=== PATIENT | female | born 1990 | race Two or more races ===

== ENCOUNTER 2024-06-02 12:11 | Emergency (ER) | payer OTHER ==
[~2024-06-02] VITALS: Ht 167.6 cm; Wt 104.6 kg
--- NOTE | 2024-06-02 12:34 | ED.PDOC ---
History of Present Illness HPI Comments 33-year-old female came to the ER complaining of right lower quadrant stabbing pain for the past four days. She states the pain causes to have vomiting. She is unable to ambulate without having excruciating pain. Pain 10/10. Denies any history of hypertension diabetes. She denies . She denies any other symptoms. 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: No Pertinent CORE PASTER History Social History Smoker: Non-Smoker Alcohol: Denies ETOH Use Drugs: Denies Drug Use Constitutional: denies: chills, diaphoresis, fatigue, fever, malaise, sweats, weakness, others EENTM: denies: blurred vision, double vision, ear bleeding, ear discharge, ear drainage, ear pain, ear ringing, eye pain, eye redness, hearing loss, mouth pain, mouth swelling, nasal discharge, nose bleeding, nose congestion, nose pain, photophobia, tearing, throat pain, throat swelling, voice changes, others Respiratory: denies: cough, hemoptysis, orthopnea, SOB at rest, shortness of breath, SOB with excertion, stridor, wheezing, others Cardiovascular: denies: chest pain, dizzy spells, diaphoresis, Dyspnea on exertion, edema, irregular heart beat, left arm pain, lightheadedness, pa lpitations, PND, syncope, others Gastrointestinal: denies: abdomen distended, abdominal pain, blood streaked bowels, constipated, diarrhea, dysphagia, difficulty swallowing, hematemesis, melena, nausea, poor appetite, poor fluid intake, rectal bleeding, rectal pain, vomiting, others Genitourinary: reports: others (Right lower quadrant mostly in the ovarian region pain); denies: abnormal vagina bleeding, burning, dyspareunia, dysuria, flank pain, frequency, hematuria, incontinence, pain, , vagina discharge, urgency Neurological: denies: dizziness, fainting, headache, left sided numbness, left sided weakness, numbness, paresthesia, pre-existing deficit, right sided n umbness, right sided weakness, seizure, speech problems, tingling, tremors, weakness, others Musculoskeletal: denies: back pain, gout, joint pain, joint swelling, muscle pain, muscle stiffness, neck pain, others Integumetry: denies: bruises, change in color, change in hair/nails, dryness, laceration, lesions, lumps, rash, wounds, others Allergic/Immunocompromised: denies: Difficulty Healing, Frequent Infections, Hives, Itching, others Hematologic/Lymphatic: denies: anemia, blood clots, easy bleeding, easy bruising, swollen glands, others Endocrine: denies: excessive hunger, excessive sweating, excessive thirst, excessive urination, flushing, intolerance to cold, intolerance to heat, unexplained weight gain, unexplained weight loss, others Psychiatric: denies: anxiety, bipolar disorder, depression, hopeless, panic disorder, schizophrenia, sleepless, suicidal, others Physical Exam General Appearance: Moderate Distress HEENT: Normal ENT Inspection, Pharynx Normal, TMs Normal Neck: Full Range of Motion, Non-Tender, Normal, Normal Inspection Respiratory: Chest Non-Tender, Lungs Clear, No Accessory Muscle Use, No Respiratory Distress, Normal Breath Sounds Cardiovascular: No Edema, No JVD, No Murmur, No Gallop, Normal Peripheral Pulses, Regular Rate/Rhythm Breast Exam: Deferred Gastrointestinal: No Organomegaly, Non Tender, No Pulsatile Mass, Normal Bowel Sounds, Soft Genitalia: Deferred Pelvic: Deferred Rectal: Deferred Extremities: No calf tenderness, Normal capillary refill, Normal inspection, Normal range of motion, Non-tender, No pedal edema Musculoskeletal : Apperance: Normal Neurologic: Alert, legal adviser II-XII nml as Tested, No Motor Deficits, Normal Affect, Normal Mood, No Sensory Deficits Cerebellar Function: Normal Reflexes: Normal Skin: Dry, Normal Color, Warm Peripheral Pulses: 3+ Radial (R), 3+ Radial (L) Lymphatic: No Adenopathy Was a procedure done? Was a procedure done?: No Differential Dx Considerations may include: Ovarian cyst Electrolyte imbalance X-Ray, Labs, Meds, VS Vital Signs Date Time Temp Pulse Resp B/P (MAP) Pulse Ox O2 Delivery O2 Flow Rate FiO2 06/02/24 14:19 86 18 96 Room Air* 0 21 06/02/24 13:50 97.8 86 18 140/98 (112) 96 97.8 06/02/24 13:50 86 18 96 Room Air 06/02/24 12:29 98.3 90 16 164/96 (118) 99 98.3 Lab Test 06/02/24 12:28 Range/Units Urine Color Yellow Yellow Urine Clarity Clear Clear Urine pH 5.5 5.0-9.0 Urine Specific Foster 1.043 H 1.001-1.035 Urine Protein Negative Negative Urine Ketones Negative Negative Urine Blood Negative Negative /uL Urine Nitrite Negative Negative Urine Bilirubin Negative Negative Urine Urobilinogen Normal Negative mg/dL Urine Leukocyte Esterase 1+ Negative /uL Urine RBC 1 0 - 4 /hpf Urine Microscopic WBC 3 0-5 /HPF Urine Squamous Epithelial Cells Few <5 /hpf Urine Bacteria Few H None Seen /hpf Urine Glucose 4+ H Normal mg/dL Current Medications Medications (Trade) Dose Ordered Sig/Fatemeh Route Start Time Stop Time Status Last Admin Sodium Chloride 1,000 ml @ 1,000 mls/hr Q1H ONCE IVB 06/02/24 12:30 06/02/24 13:29 DC 06/02/24 13:58 Ondansetron HCl (Zofran) 4 mg ONCE ONCE IV 06/02/24 12:30 06/02/24 12:31 DC 06/02/24 14:11 Ketorolac Tromethamine (Toradol Injection) 30 mg ONCE ONCE IV 06/02/24 14:00 06/02/24 14:01 DC 06/02/24 14:11 Ceftriaxone Sodium 50 ml @ 100 mls/hr ONCE ONCE IV 06/02/24 14:00 06/02/24 14:29 DC 06/02/24 14:10 Patient alert. Complaining of right lower quadrant pain. Possible ovarian cyst. Vitals stable. Answering questions. Establish intravenous access. Was given fluids. Was given morphine. Was given Zofran. Reviewed her history. Urinalysis shows UTI. Ultrasound does reveal ovarian cyst. Good flow. Explained to the patient. Continue monitoring. Was told to follow up with her primary care physician. Was told to come back if there is any problem. Time of 1ST Reevaluation: 12:32 Reevaluation 1ST: Unchanged Time of 2ND Reevaluation: 14:36 Reevaluation 2ND: Improved Patient Education/Counseling: Diagnosis, Treatment, Prognosis, Need For Follow Up Family Education/Counseling: No Family Present Departure 1 Departure Time of Disposition: 12:33 Impression: Primary Impression: Ovarian cyst Qualified Codes: N83.201 - Unspecified ovarian cyst, right side Additional Impression: Urinary tract infection Qualified Codes: N30.00 - Acute cystitis without hematuria Disposition: HOME / SELF CARE / HOMELESS Condition: Good e-Prescriptions Nitrofurantoin Monohydrate Mac (Macrobid) 100 Mg Cap 100 MG PO BID for 5 Days, #10 CAP Prov: BHARATHI BREAUX MD 06/02/24 Discharged With: Self Critical Care Note Critical Care Time?: No Stability Stability form required: No Heart Score Heart Score: Heart Score Response (Comments) Value History N/A 0 EKG N/A 0 Age N/A 0 Risk Factors N/A 0 Troponin N/A 0 Total 0 BHARATHI BREAUX MD Jun 02, 2024 12:34
[2024-06-02 13:05] LABS: Urine Bacteria FEW /hpf (None Seen); Urine Blood Negative /uL (Negative); Urine Clarity Clear (Clear); Urine Color Yellow (Yellow); Urine Protein, UAD Negative (Negative); Urine Specific Gravity 1.043 (1.001-1.035); Urine Squamous Epithelial Cell FEW /hpf (<5); Urine Urobilinogen Normal (Negative); Urine WBC 3 /HPF (0-5); Urine pH 5.5 (5.0-9.0)
[2024-06-02] MEDS: MORPHINE SULFATE 4 MG/ML SYR/VIAL IV ONE (13:52)
[2024-06-02] MEDS: SODIUM CHLORIDE 0.9% 1,000 ML IVB ONE (13:58)
--- NOTE | 2024-06-02 13:59 | DVH ---
Procedure: US PELVIC Study Date and Requested Time: 06/02/2024 01:07 PM Study Description: US PELVIC History: ovary Comparison: None Technique: Multiple transabdominal and transvaginal high resolution fernández-scale images obtained of the uterus and adnexa with color Doppler for evaluation of adnexal blood flow and vascularity as indicat ed. Findings: Uterus measures 8.2 x 4.3 x 4.1 cm, with heterogeneous echotexture. Endometrium within normal limits, measuring 0.7 cm in thickness with smooth contour. Trace amount of fluid within endocervical canal. Right ovary measures 2.3 x 2.3 x 2.6 cm with a 1.4 cm dominant follicle. Normal right ovarian color d oppler flow. The left ovary is not visualized. No evidence of free fluid in the cul-de-sac. Impression: The left ovary is not visualized. Trace amount of fluid within the endocervical canal. 1.4 cm right ovarian dominant cyst. Otherwise, the right ovary is unremarkable. Heterogeneous appearance of the uterus.
[2024-06-02] MEDS: cefTRIAXone 1GM/50ML D5W 50 ML IV ONE (14:10)
[2024-06-02] MEDS: KETOROLAC TROMETH 30 MG/ML 1ML VIAL IV ONE (14:11)
[2024-06-02] MEDS: ONDANSETRON HCL 4 MG/2 ML VIAL IV ONE (14:11)
[2024-06-02 14:19] VITALS: PULSE 86; RESP 18; O2SAT 96
[2024-06-02] MEDS ORDERED: NITR-87 PO (14:38)
[2024-06-02 15:30] VITALS: BP 150/88; PULSE 92; RESP 16; TEMP 97.6; O2SAT 98
== END 2024-06-02 15:41 | disposition home or self-care (01) ==
LOC: ER 12:11
DX: N83.209 Unspecified ovarian cyst, unspecified side (principal); N39.0 Urinary tract infection, site not specified; Z88.5 Allergy status to narcotic agent; Z98.890 Other specified postprocedural states
CPT/HCPCS: 76830; 76856; 81001; 96365; 96375; 99285; J0696; J1885; J2405

== ENCOUNTER 2024-07-10 11:11 | Emergency (ER) | payer SELFPAY ==
[~2024-07-10] VITALS: Ht 167.6 cm; Wt 101.4 kg
[~2024-07-10 11:11] MED LIST: NITR-87 PO
--- NOTE | 2024-07-10 13:17 | DVH ---
INDICATION: trauma. r/o fracture COMPARISON: None TECHNIQUE: 3 views of the lumbar spine were obtained. FINDINGS: The lumbar vertebral alignment is normal. The intervertebral disc spaces are well-maintained. No significant facet arthropathy is noted. No acute fracture, vertebral compression deformity or aggressive osseous lesions. The paravertebral soft tissues are grossly unremarkable. IMPRESSION: No acute fracture.
--- NOTE | 2024-07-10 13:22 | ED.PDOC ---
History of Present Illness HPI Comments 33 year old female presents to the ED for the c/c of Lumbar back pain. Pt states that she woke up at approx 4am to use the restroom. Pt notes that upon walking down her hallway she came across a puddle of water that she did not see, slipped, and hit her lower back. Pt states that she is currently in 10/10 pain with no alleviating factors at this time. Notes pt has had a prior Laminectomy back in 2013. Pt Denies fever, SOB, chest pain, abdominal pain, nausea, vomiting, diarrhea, headache, dizziness, vision changes, or numbness/tingling of extremities. No other symptoms or modifying factors reported at this time. Chief Complaint: Back Pain Time Seen by MD: 13:14 Primary Care Provider: SONY Kasper Notes: Nurses Notes, Medications, Allergies Home Meds Active Scripts Naproxen (Naproxen) 500 Mg Tab, 500 MG PO BIDPC for 10 Days, #20 TAB 0 Refills Prov:ESTEVAN WIGGINS DATA CONTROL ASSISTANT 07/10/24 Nitrofurantoin Monohydrate Mac (Macrobid) 100 Mg Cap, 100 MG PO BID for 5 Days, #10 CAP Prov:BHARATHI BREAUX MD 06/02/24 Information Source: Patient Mode of Arrival: Ambulatory Severity: Moderate Timing: Hours Duration: Since onset, Hours Prehospital treatment: None Past Medical History PAST MEDICAL HISTORY: Denies 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 History: 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 History: No Pertinent 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 WRITER History Social History Smoker: Non-Smoker Alcohol: Denies ETOH Use Drugs: Denies Drug Use Lives In: Home Constitutional: denies: chills, diaphoresis, fatigue, fever, malaise, sweats, weakness, others EENTM: denies: blurred vision, double vision, ear bleeding, ear discharge, ear drainage, ear pain, ear ringing, eye pain, eye redness, hearing loss, mouth pain, mouth swelling, nasal discharge, nose bleeding, nose congestion, nose pain, photophobia, tearing, throat pain, throat swelling, voice changes, others Respiratory: denies: cough, hemoptysis, orthopnea, SOB at rest, shortness of breath, SOB with excertion, stridor, wheezing, others Cardiovascular: denies: chest pain, dizzy spells, diaphoresis, Dyspnea on exertion, edema, irregular heart beat, left arm pain, lightheadedness, palpitations, PND, syncope, others Gastrointestinal: denies: abdomen distended, abdominal pain, blood streaked bowels, constipated, diarrhea, dysphagia, difficulty swallowing, hematemesis, melena, nausea, poor appetite, poor fluid intake, rectal bleeding, rectal pain, vomiting, others Genitourinary: denies: abnormal vagina bleeding, burning, dyspareunia, dysuria, flank pain, frequency, hematuria, incontinence, pain, , vagina discharge, urgency, others Neurological: denies: dizziness, fainting, headache, left sided numbness, left sided weakness, numbness, paresthesia, pre-existing deficit, right sided numbness, right sided weakness, seizure, speech problems, tingling, tremors, weakness, others Musculoskeletal: reports: back pain (lumbar); denies: gout, joint pain, joint swelling, muscle pain, muscle stiffness, neck pain, others Integumetry: denies: bruises, change in color, change in hair/nails, dryness, laceration, lesions, lumps, rash, wounds, others Allergic/Immunocompromised: denies: Difficulty Healing, Frequent Infections, Hives, Itching, others Hematologic/Lymphatic: denies: anemia, blood clots, easy bleeding, easy bruising, swollen glands, others Endocrine: denies: excessive hunger, excessive sweating, excessive thirst, excessive urination, flushing, intolerance to cold, intolerance to heat, unexplained weight gain, unexplained weight loss, others Psychiatric: denies: anxiety, bipolar disorder, depression, hopeless, panic disorder, schizophrenia, sleepless, suicidal, others All Other Systems: Reviewed and Negative Physical Exam General Appearance: Moderate Distress, Normal, Obese HEENT: Normal ENT Inspection, TMs Normal Neck: Full Range of Motion, Non-Tender, Normal Respiratory: Chest Non-Tender, Lungs Clear, No Respiratory Distress, Normal Breath Sounds Cardiovascular: No Edema, No JVD, Regular Rate/Rhythm Breast Exam: Deferred Gastrointestinal: Non Tender, No Pulsatile Mass, Soft Genitalia: Deferred Pelvic: Deferred Rectal: Deferred Extremities: No calf tenderness, Normal inspection, Normal range of motion, Non-tender, No pedal edema Musculoskeletal : Location: Bilateral Extremity Location: Back (no gross abnormality upon inspection, no midline tenderness, no step offs on palpation, subjective pain with foward flection, and lateral movements, distal sensation intact.), Knee (Bilateral patelar reflexes and 2x bilaterally.) Apperance: Normal Neurologic: Alert, No Motor Deficits, Normal Mood Cerebellar Function: Normal Reflexes: Normal Skin: Dry, Normal Color, Warm Lymphatic: No Adenopathy Was a procedure done? Was a procedure done?: No Differential Dx Considerations may include: Musculoskeletal, strain, fractures X-Ray, Labs, Meds, VS Vital Signs Date Time Temp Pulse Resp B/P (MAP) Pulse Ox O2 Delivery O2 Flow Rate FiO2 07/10/24 14:22 98.5 72 16 141/89 (106) 98 98.5 07/10/24 14:22 98.9 07/10/24 14:22 76 16 98 Room Air 07/10/24 13:50 98.1 07/10/24 12:01 98.2 83 18 151/88 (109) 98 98.2 Current Medications Medications (Trade) Dose Ordered Sig/Fatemeh Route Start Time Stop Time Status Last Admin Acetaminophen/ Hydrocodone Bitart ([place] 7.5/325MG Tab) 1 tab ONCE ONCE PO 07/10/24 13:45 07/10/24 13:46 DC 07/10/24 13:51 Ibuprofen (Motrin Tablet) 600 mg ONCE ONCE PO 07/10/24 13:45 07/10/24 13:46 DC 07/10/24 13:50 PATIENT: FERNANDA CURTIS ACCT: [id number] UNIT: [id number] : 1990 LOC: ER ROOM / BED: / AGE / SEX: 33 / F ADM STATUS: REG ER SERVICE 1206 ORDERING PHYSICIAN: ESTEVAN WIGGINS DATA CONTROL ASSISTANT PROCEDURE(s): LUMB2 - LUMBAR SPINE 3 VIEW REASON: Fall. r/o fracture ORDER NUMBER(s): [id number], ACCESSION NUMBER(s): [id number] INDICATION: trauma. r/o fracture COMPARISON: None TECHNIQUE: 3 views of the lumbar spine were obtained. FINDINGS: The lumbar vertebral alignment is normal. The intervertebral disc spaces are well-maintained. No significant facet arthr opathy is noted. No acute fracture, vertebral compression deformity or aggressive osseous lesions. The paravertebral soft tissues are grossly unremarkable. IMPRESSION: No acute fracture. Electronically Signed by: Lilia lacey 07/10/2024 13:14:57 PM X-Ray, Labs, Meds, VS Comment 33 year old female presents to the ED for the c/c of Lumbar back pain. I considered cauda equina, spinal cord compression, vertebral malignancy/mets, acute spinal fracture, vertebral osteomyelitis, epidural abscess, infected or obstructed kidney stone, however this is less likely as the patient does not present with lower back pain red flags. Presentation most consistent with nonemergent musculoskeletal etiology versus nonemergent disc herniation. ED workup: Defer further imaging and lab work for outpatient follow up at this time Disposition: Discharge. Strict return precautions discussed with the patient with full understanding. Supportive care advised (rest, ice, heat, NSAIDs, stretching exercises) Massage muscles with cold pack or ice for 20 minutes 4 times per day. Usually most useful if there is swelling during the first 48 hours Heating pad on the most painful area for 20 minutes to relieve muscle spasm Sleep and the most comfortable sleeping position (usually on the side with knees bent) Light stretching, no strenuous activity, avoid frequent bending, avoid carrying heavy objects Discussed possible benefits of yoga and acupuncture Return precautions discussed including Inability to walk/bear weight Paresthesia/weakness/leg pain Fecal/urinary incontinence Any worsening symptoms Additional MDM Review of External, Non-ED records: External records reviewed. Discussion with independent historian (EMS, family) history obtained from the marc ferris at bedside Chronic conditions affecting care: None Social determinants of health affecting care: None Consideration of admission (observation or admission): I considered escalation of care to admission for this patient, however given the reassuring workup, the patient is safe for outpatient management. Time of 1ST Reevaluation: 13:45 Reevaluation 1ST: Unchanged Patient Education/Counseling: Diagnosis, Treatment Family Education/Counseling: No Family Present Departure 1 Departure Time of Disposition: 13:34 Impression: Primary Impression: Fall Qualified Codes: W19.XXXA - Unspecified fall, initial encounter Additional Impression: Back pain Qualified Codes: M54.50 - Low back pain, unspecified Disposition: 01 HOME / SELF CARE / HOMELESS Condition: Stable e-Prescriptions Naproxen (Naproxen) 500 Mg Tab 500 MG PO BIDPC for 10 Days, #20 TAB 0 Refills Prov: ESTEVAN WIGGINS DATA CONTROL ASSISTANT 07/10/24 Discharged With: Relative Critical Care Note Critical Care Time?: No Stability Stability form required: No Heart Score Heart Score: Heart Score Response (Comments) Value History N/A 0 EKG N/A 0 Age N/A 0 Risk Factors N/A 0 Troponin N/A 0 Total 0 I personally scribed for ESTEVAN WIGGINS DATA CONTROL ASSISTANT ([email or web address]) on 07/10/24 at 13:22. Electronically submitted by Haroldo Deras ([email or web address]). I personally scribed for ESTEVAN WIGGINS DATA CONTROL ASSISTANT ([email or web address]) on 07/10/24 at 13:23. Electronically submitted by Haroldo Deras ([email or web address]). I personally scribed for ESTEVAN WIGGINS DATA CONTROL ASSISTANT ([email or web address]) on 07/10/24 at 13:30. Electronically submitted by Haroldo Deras ([email or web address]). I personally scribed for ESTEVAN WIGGINS DATA CONTROL ASSISTANT ([email or web address]) on 07/10/24 at 13:34. Electronically submitted by Haroldo Deras ([email or web address]). I personally scribed for ESTEVAN WIGGINS DATA CONTROL ASSISTANT ([email or web address]) on 07/10/24 at 14:18. Electronically submitted by Haroldo Deras ([email or web address]). ESTEVAN WIGGINS NP July 10, 2024 13:22
[2024-07-10] MEDS ORDERED: NAPR-746 PO (13:36)
[2024-07-10] MEDS: IBUPROFEN 600 MG TAB PO ONE (13:50)
[2024-07-10] MEDS: HYDROcodone-ACET 7.5/325MG TAB PO ONE (13:51)
[2024-07-10 14:22] VITALS: BP 141/89; PULSE 76; RESP 16; TEMP 98.5; O2SAT 98
== END 2024-07-10 14:24 | disposition home or self-care (01) ==
LOC: ER 11:20
DX: M54.50 Low back pain, unspecified (principal); Z98.890 Other specified postprocedural states; Z79.899 Other long term (current) drug therapy; W01.198A Fall on same level from slipping, tripping and stumbling with subsequent striking against other object, initial encounter; Y93.01 Activity, walking, marching and hiking; Y92.89 Other specified places as the place of occurrence of the external cause; Y99.8 Other external cause status
CPT/HCPCS: 72100

== ENCOUNTER 2024-12-18 11:42 | Emergency (ER) | payer SELFPAY ==
[~2024-12-18] VITALS: Ht 170.2 cm; Wt 104.6 kg
[~2024-12-18 11:42] MED LIST changes: +NAPR-746 PO
[2024-12-18 12:12] VITALS: BP 152/95; PULSE 99; RESP 16; TEMP 97.8; O2SAT 94
--- NOTE | 2024-12-18 12:21 | ED.PDOC ---
MEDICAL MASSAGE THERAPIST HPI Comments HPI: 34 y/o F, presents to the ED for CC of . Patient reports, to have had x2 positive at home test [id number] ago. Patient endorses, having associated symptoms of "movement" in her lower pelvic area [id number]; denies any pain. Patient relays, that she had a tubal ligation in 2022 and wants to verify if she is currently . Patient denies abdominal pain, active vaginal bleeding, nausea, vomiting, or diarrhea. No other symptoms or modifying factors are present at this time. Initial Vitals BP: HR: RR: O2 Sat: Temp: Past Medical history: Hyperemesis Past Surgical history: TUBAL LIGATION, FIBROMECTOMY Medications: DENIES ANY Social History: Denies smoking, ETOH, and drug use. Allergies: NKDA HPI: Poor Historian. Patient feels movement in her abdomen as if she is . Positive urine tests. one living child, one child, one miscarriage REVIEW OF SYSTEMS: CONSTITUTIONAL: Denies acute: fever, diaphoresis, chills, generalized weakness. HEAD: Denies acute: headache, photophobia Eyes: Denies acute: Double vision, vision loss, eye pain, eye discharge. EARS: Denies acute: tinnitus, hearing loss, ear discharge, ear pain, THROAT: Denies acute: sore throat, swelling, difficulty swallowing , pain with swallowing, change in voice. NECK: Denies acute: neck pain, neck swelling, stiff neck. HEART: Denies acute : chest pain, palpitations, LUNGS: Denies acute: SOB, wheezing, cough, hemoptysis ABDOMEN: Denies acute: abdominal pain, Nausea, Vomiting, diarrhea, melena , hematemesis, hematochezia SKIN: Denies acute: rash, redness, lesions, itchiness. EXTREMITIES: Denies acute: calf pain, numbness, tingling, weakness, denies pain in extremity. Denies acute: Low back pain. Neuro: Denies acute: focal neurological deficit, motor or sensory focal neurological deficit, tremors, seizure like activity, confusion, dizziness, change in mental status, loss of bowel or bladder function, cauda equina like symptoms. : Denies acute: dysuria, hematuria, flank pain, increase in urinary frequency. PSYCH: Denies acute: hallucination, suicidal ideation, homicidal ideation. FEMALE: Denies acute: abnormal vaginal bleeding, foul odor, unusual discharge. PHYSICAL EXAM: General: ---no-----acute distress, awake and alert. Head: normocephalic, atraumatic. No raccoon's eyes, no ross sign. Neck: supple, trachea is midline, no swelling. Throat: Normal phonation. Eyes:, no erythema, no purulent discharge, no proptosis, no icterus. Heart: regular rate, regular rhythm, no significant murmur appreciated. Lungs: no apparent respiratory distress, Able to speak in full sentences. No wheezing, no rhonchi, no crackles. No stridors Clear to auscultation bilaterally. Abdomen: non tender to palpation, non distended, soft, no guarding, no rebound, + bowel sounds. Neuro: Awake, Alert, oriented to name, self, situation, follows commands GCS=15. Speech is normal. Skin: no petechia, no purpura, no cyanosis, non-pale, not jaundice. Lower extremities: --no - Pitting edema no deformity, no focal swelling, no calf TTP. Makes eye contact. moves all four extremities. Face: no apparent facial droop. Ambulating in the ED independently. ED COURSE: DISCLAIMER: This medical document was created using an electronic medical record system with voice recognition software and computerized dictation system. Although this document has been carefully reviewed, there might still be some phonetic and typographical errors. Occasional wrong-word or "sound-alike" substitutions may have occurred due to the inherent limitations of voice recognition software. These areas are purely typographical due to imperfections of the software programs and do not reflect any compromise in the patient's medical care. Please read the chart carefully and recognize, using context, where these substitutions have occurred. Chief Complaint: Pelvic Pain Time Seen by MD: 12:00 Reviewed Notes: Nurses Notes, Medications, Allergies Allergies: Coded Allergies: NO KNOWN ALLERGIES (Unverified , 12/18/24) Home Meds Active Scripts Naproxen (Naproxen) 500 Mg Tab, 500 MG PO BIDPC for 10 Days, #20 TAB 0 Refills Prov:ESTEVAN WIGGINS NP 07/10/24 Nitrofurantoin Monohydrate Mac (Macrobid) 100 Mg Cap, 100 MG PO BID for 5 Days, #10 CAP Prov:BHARATHI BREAUX MD 06/02/24 Information Source: Patient Mode of Arrival: Ambulatory Timing: Months Prehospital treatment: None Severity: Moderate Vaginal Discharge: None Vaginal Lesions: None Vaginal Mass: None Sexual Activity: Control: None History of: Current Blood Type: Unknown Symptoms of Possible : None Associated Signs and Symptoms: None Was a procedure done? 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 Patient denies any abdominal pain or vaginal bleed. She feels movement in her lower abdomen similar to her previous pregnancies X-Ray, Labs, Meds, VS Vital Signs Date Time Temp Pulse Resp B/P (MAP) Pulse Ox O2 Delivery O2 Flow Rate FiO2 12/18/24 12:16 Room Air* 0 21 12/18/24 12:12 97.8 99 16 152/95 (114) 94 97.8 12/18/24 11:46 98.0 88 16 146/92 96 98.0 Lab Test 12/18/24 15:13 12/18/24 14:10 12/18/24 12:10 Range/Units Urine Color Light-yellow Yellow Urine Clarity Clear Clear Urine pH 5.5 5.0-9.0 Urine Specific [place] 1.046 H 1.001-1.035 Urine Protein Negative Negative Urine Ketones Negative Negative Urine Blood Negative Negative /uL Urine Nitrite Negative Negative Urine Bilirubin Negative Negative Urine Urobilinogen Normal Negative mg/dL Urine Leukocyte Esterase Negative Negative /uL Urine RBC <1 0 - 4 /hpf Urine Microscopic WBC < 1 0-5 /HPF Urine Squamous Epithelial Cells Few <5 /hpf Urine Bacteria None seen None Seen /hpf Urine Glucose 4+ H Normal mg/dL Urine Test Negative Negative POC Glucose 332 H 70-106 mg/dl White Blood Count 8.8 4.4-10.8 10^3/uL Red Blood Count 4.79 4.0-5.20 10^6/uL Hemoglobin 14.8 12.2-16.2 g/dL Hematocrit 43.9 36.0-46.0 % Mean Corpuscular Volume 91.6 80.0-100.0 fL Mean Corpuscular Hemoglobin 30.9 28.0-32.0 pg Mean Corpuscular Hemoglobin Concent 33.7 32.0-36.0 g/dL Red Cell Distribution Width 13.4 11.8-14.3 % Platelet Count 237 140-450 10^3/uL Mean Platelet Volume 8.8 6.9-10.8 fL Neutrophils (%) (Auto) 69.4 37.0-80.0 % Lymphocytes (%) (Auto) 22.8 10.0-50.0 % Monocytes (%) (Auto) 6.1 0.0-12.0 % Eosinophils (%) (Auto) 1.3 0.0-7.0 % Basophils (%) (Auto) 0.4 0.0-2.0 % Neutrophils # (Auto) 6.1 1.6-8.6 10 ^3/uL Lymphocytes # (Auto) 2.0 0.4-5.4 10 ^3/uL Monocytes # (Auto) 0.5 0-1.3 10 ^3/uL Eosinophils # (Auto) 0.1 0-0.8 10 ^3/uL Basophils # (Auto) 0 0-0.2 10 ^3/uL Nucleated Red Blood Cells 0.1 % Sodium Level 138 136-145 mmol/L Potassium Level 4.1 3.5-5.1 mmol/L Chloride Level 100 98-107 mmol/L Carbon Dioxide Level 26 20-31 mmol/L Anion Gap 12 5-15 Blood Urea Nitrogen 8 L 9-23 mg/dL Creatinine 0.78 0.550-1.02 mg/dL Glomerular Filtration Rate Calc 103 >90 mL/min BUN/Creatinine Ratio 10.3 10.0-20.0 Serum Glucose 403 *H 74-106 mg/dL Calcium Level 8.7 8.7-10.4 mg/dL Total Bilirubin 0.6 0.2-1.0 mg/dL Aspartate Amino Transferase (AST) 24 13-40 U/L Alanine Aminotransferase (ALT) 35 7-40 U/L Alkaline Phosphatase 96 46-116 U/L Total Protein 6.9 5.7-8.2 g/dL Albumin 4.1 3.2-4.8 g/dL Beta HCG, Quantitative 0.0 L 1.5-4.2 mIU/mL Current Medications Medications (Trade) Dose Ordered Sig/Fatemeh Route Start Time Stop Time Status Last Admin Insulin Human Regular (InsuLIN R) 5 units ONCE ONCE IV 12/18/24 13:00 12/18/24 13:37 DC 12/18/24 14:[address] [address] Ph: [phone] DIAGNOSTIC IMAGING Diagnostic Imaging Report : [id number] Signed PATIENT: FERNANDA CURTIS ACCT: [id number] UNIT: [id number] : 1990 LOC: ER ROOM / BED: / AGE / SEX: 34 / F ADM STATUS: REG ER SERVICE 1157 ORDERING PHYSICIAN: GELY MEJIA DO PROCEDURE(s): PELUS - PELVIC REASON: pelvic pain ORDER NUMBER(s): [id number], ACCESSION NUMBER(s): [id number] INDICATION: pelvic pain TECHNIQUE: Multiple real-time grayscale transabdominal and transvaginal sonographic images along with color and duplex Doppler of the uterus and ovaries were obtained. COMPARISON: US PELVIC on DOS: 06/02/24 FINDINGS: The uterus measures 6.8 x 3.5 x 4.5 cm. Uterus heterogeneous. The endometrial stripe measures 1.6 cm. The right ovary measures 5.6 x 5.1 x 4. cm. There is a right ovarian cyst with minimal septations 4.8 cm. The left ovary measures 3.2 x 2.0 x 1. cm. Subsequent color and duplex Doppler interrogation of the ovaries demonstrated symmetric vascular flow to both ovaries, though this does not exclude the possibility of torsion due to the dual blood supply. IMPRESSION: Minimally complicated right ovarian cyst measuring 4.8 cm. Recommend follow-up pelvic ultrasound 6 weeks. Heterogeneous uterus. ATED BY: TONY DE JESUS MD DICTATED DATE/TIME: 12/18/24 134 SIGNED BY: TONY DE JESUS MD SIGNED DATE/TIME: 12/18/24 1346 CC: [address] [address] Ph: [phone] DIAGNOSTIC IMAGING Diagnostic Imaging Report : [id number] Signed PATIENT: FERNANDA CURTIS ACCT: [id number] UNIT: [id number] : 1990 LOC: ER ROOM / BED: / AGE / SEX: 34 / F ADM STATUS: REG ER SERVICE 1326 ORDERING PHYSICIAN: GELY MEJIA DO PROCEDURE(s): PELTR - TRANSVAGINAL US NON OB REASON: PELVIC PAIN ORDER NUMBER(s): [id number], ACCESSION NUMBER(s): [id number] INDICATION: pelvic pain TECHNIQUE: Multiple real-time grayscale transabdominal and transvaginal sonographic images along with color and duplex Doppler of the uterus and ovaries were obtained. COMPARISON: US PELVIC on DOS: 06/02/24 FINDINGS: The uterus measures 6.8 x 3.5 x 4.5 cm. Uterus heterogeneous. The endometrial stripe measures 1.6 cm. The right ovary measures 5.6 x 5.1 x 4. cm. There is a right ovarian cyst with minimal septations 4.8 cm. The left ovary measures 3.2 x 2.0 x 1. cm. Subsequent color and duplex Doppler interrogation of the ovaries demonstrated symmetric vascular flow to both ovaries, though this does not exclude the possibility of torsion due to the dual blood supply. IMPRESSION: Minimally complicated right ovarian cyst measuring 4.8 cm. Recommend follow-up pelvic ultrasound 6 weeks. Heterogeneous uterus. ATED BY: TONY DE JESUS MD DICTATED DATE/TIME: 12/18/24 1346 SIGNED BY: TONY DE JESUS MD SIGNED DATE/TIME: 12/18/24 1346 CC: Time of 1ST Reevaluation: 12:30 Reevaluation 1ST: Unchanged Patient Education/Counseling: Diagnosis, Treatment Family Education/Counseling: No Family Present Comments Patient left against medical advice because she had to leave crab picker her mother law from ICU. MDM: patient presented with the above HPI.--positive tests rule out ----workup was initiated. patient was found with the above mentioned diagnosis. the following medications were ordered: please refer to order lists of meds and tests obtained by myself Dr. Mejia. Patient ED course and VS have been stabilized. Patient has been reassessed in the ED and remained in a stable condition. Pertinent incidental findings were discussed with the patient and/or family. Patient has been observed in the ED adequate length of time to insure improvement/stability. Escalation of care considered: Consideration of escalation to observation or admission Insulin was ordered for her hypoglycemia. She denies history of diabetes. All the reports of any imaging studies that were ordered by myself were reviewed by myself. Departure 1 Departure Time of Disposition: 14:19 Impression: Primary Impression: Possible Additional Impressions: Hyperglycemia Right ovarian cyst Left against medical advice Disposition: 07 LEFT AGAINST MEDICAL ADVICE Condition: Stable Additional Instructions: Patient left against medical advice Additional instructions: Please read all instructions provided in this packet carefully. You MUST follow-up with your primary care/family doctor in 1 to 2 days. If you are unable to see your primary care/family doctor, please return to our emergency room for re-assessment and re-evaluation in 1 to 2 days. Return to the emergency room here in our facility or to the nearest ER [facility] if your symptoms change or worsen. CONSULTATIONS: you MUST Follow-up for consultation as soon as possible with: Dr.-OB Patton doctor in 1-2 days. Please call for appointment. You MUST call the consultants office yourself to make an appointment. You may need to arrange that through your insurance and/or your primary/family doctor. If you are unable to see the [facility] consultant in 1 to 2 days, you must return to our emergency room (or any other ER of your choice) for re-assessment and re- evaluation. Adequate fluid hydration. Although you have been discharged from the Emergency Department, this does not mean that you have a "clean bill of health". No definitive diagnosis for your symptoms has been made today. It is possible that you are in the process of developing a serious illness. This is why you must return to the ED without fail if any new or worsening symptoms develop. Repeat pelvic ultrasound in 4-5 days. Repeat beta-hCG levels in 48-72 hours. Today it is 0 Below is a copy of your radiological report for follow up: [address] [address] Ph: [phone] DIAGNOSTIC IMAGING Diagnostic Imaging Report : [id number] Signed PATIENT: FERNANDA CURTIS ACCT: [id number] UNIT: [id number] : 1990 LOC: ER ROOM / BED: / AGE / SEX: 34 / F ADM STATUS: REG ER SERVICE 1157 ORDERING PHYSICIAN: GELY MEJIA DO PROCEDURE(s): PELUS - PELVIC REASON: pelvic pain ORDER NUMBER(s): [id number], ACCESSION NUMBER(s): [id number] INDICATION: pelvic pain TECHNIQUE: Multiple real-time grayscale transabdominal and transvaginal sonographic images along with color and duplex Doppler of the uterus and ovaries were obtained. COMPARISON: US PELVIC on DOS: 06/02/24 FINDINGS: The uterus measures 6.8 x 3.5 x 4.5 cm. Uterus heterogeneous. The endometrial stripe measures 1.6 cm. The right ovary measures 5.6 x 5.1 x 4. cm. There is a right ovarian cyst with minimal septations 4.8 cm. The left ovary measures 3.2 x 2.0 x 1. cm. Subsequent color and duplex Doppler interrogation of the ovaries demonstrated symmetric vascular flow to both ovaries, though this does not exclude the possibility of torsion due to the dual blood supply. IMPRESSION: Minimally complicated right ovarian cyst measuring 4.8 cm. Recommend follow-up pelvic ultrasound 6 weeks. Heterogeneous uterus. [place] [address] Ph: [phone] DIAGNOSTIC IMAGING Diagnostic Imaging Report : [id number] Signed PATIENT: FERNANDA CURTIS ACCT: [id number] UNIT: [id number] : 1990 LOC: ER ROOM / BED: / AGE / SEX: 34 / F ADM STATUS: REG ER SERVICE 1326 ORDERING PHYSICIAN: GELY MEJIA DO PROCEDURE(s): PELTR - TRANSVAGINAL US NON OB REASON: PELVIC PAIN ORDER NUMBER(s): [id number], ACCESSION NUMBER(s): [id number] INDICATION: pelvic pain TECHNIQUE: Multiple real-time grayscale transabdominal and transvaginal sonographic images along with color and duplex Doppler of the uterus and ovaries were obtained. COMPARISON: US PELVIC on DOS: 06/02/24 FINDINGS: The uterus measures 6.8 x 3.5 x 4.5 cm. Uterus heterogeneous. The endometrial stripe measures 1.6 cm. The right ovary measures 5.6 x 5.1 x 4. cm. There is a right ovarian cyst with minimal septations 4.8 cm. The left ovary measures 3.2 x 2.0 x 1. cm. Subsequent color and duplex Doppler interrogation of the ovaries demonstrated symmetric vascular flow to both ovaries, though this does not exclude the possibility of torsion due to the dual blood supply. IMPRESSION: Minimally complicated right ovarian cyst measuring 4.8 cm. Recommend follow-up pelvic ultrasound 6 weeks. Heterogeneous uterus. ATED BY: TONY DE JESUS MD DICTATED DATE/TIME: 12/18/24 134 SIGNED BY: TONY DE JESUS MD SIGNED DATE/TIME: 12/18/24 134 CC: DICTATED BY: TONY DE JESUS MD DICTATED DATE/TIME: 12/18/24 134 SIGNED BY: TONY DE JESUS MD SIGNED DATE/TIME: 12/18/24 134 CC: Discharged With: Self Critical Care Note Critical Care Time?: No I personally scribed for GELY MEJIA DO ([email or web address]) on 12/18/24 at 12:21. Electronically submitted by Bernadette Sinclair ([email or web address]). I personally scribed for GELY MEJIA DO ([email or web address]) on 12/18/24 at 13:52. Electronically submitted by Bernadette Sinclair ([email or web address]). I personally scribed for GELY MEJIA DO ([email or web address]) on 12/18/24 at 13:53. Electronically submitted by Bernadette Sinclair ([email or web address]). GELY MEJIA DO Dec 18, 2024 12:21
[2024-12-18 12:43] LABS: Hematocrit 43.9 % (36.0-46.0); Hemoglobin 14.8 g/dL (12.2-16.2); Mean Corpuscular Hemoglobin 30.9 pg (28.0-32.0); Mean Corpuscular Volume 91.6 fL (80.0-100.0); Nucleated Red Blood Cells % 0.1 %
[2024-12-18 12:53] LABS: Alanine Aminotransferase 35 U/L (7-40); Albumin 4.1 g/dL (3.2-4.8); Alkaline Phosphatase 96 U/L (46-116); Anion Gap 12 (5-15); BUN/Creatinine Ratio 10.3 (10.0-20.0); Carbon Dioxide 26 mmol/L (20-31); Chloride 100 mmol/L (98-107); Potassium 4.1 mmol/L (3.5-5.1); Sodium 138 mmol/L (136-145); Total Protein 6.9 g/dL (5.7-8.2)
[2024-12-18 12:54] LABS: Bilirubin, Total 0.6 mg/dL (0.2-1.0)
[2024-12-18 12:56] LABS: Blood Urea Nitrogen 8 mg/dL (9-23); Calcium 8.7 mg/dL (8.7-10.4)
[2024-12-18 12:58] LABS: Glucose 403 mg/dL (74-106)
--- NOTE | 2024-12-18 13:49 | DVH ---
INDICATION: pelvic pain TECHNIQUE: Multiple real-time grayscale transabdominal and transvaginal sonographic images along with color and duplex Doppler of the uterus and ovaries were obtained. COMPARISON: US PELVIC on DOS: 06/02/24 FINDINGS: The uterus measures 6.8 x 3.5 x 4.5 cm. Uterus heterogeneous. The endometrial stripe measures 1.6 cm. The right ovary measures 5.6 x 5.1 x 4. cm. There is a right ovarian cyst with minimal septations 4.8 cm. The left ovary measures 3.2 x 2.0 x 1. cm. Subsequent color and duplex Doppler interrogation of the ovaries demonstrated symmetric vascular flow to both ovaries, though this does not exclude the possibility of torsion due to the dual blood supply. IMPRESSION: Minimally complicated right ovarian cyst measuring 4.8 cm. Recommend follow-up pelvic ultrasound 6 weeks. Heterogeneous uterus.
[2024-12-18] MEDS: InsuLIN REG 1unit/0.01ml Soln (100units/ml) IV ONE (14:30)
[2024-12-18 15:26] LABS: Urine Protein, UAD Negative (Negative)
== END 2024-12-18 14:43 | disposition left against medical advice (07) ==
LOC: ER 11:42
DX: O34.81 Maternal care for other abnormalities of pelvic organs, first trimester (principal); N83.201 Unspecified ovarian cyst, right side; R73.9 Hyperglycemia, unspecified; Z3A.01 Less than 8 weeks gestation of pregnancy; Z98.51 Tubal ligation status; R10.20 Pelvic and perineal pain unspecified side
CPT/HCPCS: 36415; 76830; 76856; 80053; 81001; 81025; 82947; 84702; 85025; 96374; 99285; J1815; 82962